=== PATIENT | male | born 1940 | race Caucasian/White ===

== ENCOUNTER 2017-12-27 18:36 | Emergency (ER) | payer OTHER, BC ==
[~2017-12-27] VITALS: Ht 172.7 cm; Wt 79.5 kg
[2017-12-27 19:35] LABS: MCHC 33.3 G/DL (30.0-36.0); PLATELET COUNT 249 K/uL (156-360); RBC DIS.WIDTH-CV 13.6 % (11.8-14.6); RBC DIS.WIDTH-SD 44.7 % (39-53); WHITE BLOOD COUNT 7.7 K/uL (4.1-10.2)
[2017-12-27 19:50] LABS: ALBUMIN 4.3 g/dL (3.2-4.8); CHLORIDE 106 mEq/L (99-109); POTASSIUM 4.1 mEq/L (3.7-5.4); SODIUM 139 mEq/L (136-147)
[2017-12-27 19:52] LABS: GLUCOSE 103 mg/dL (70-99); TOTAL PROTEIN 7.1 g/dL (6.4-8.3)
[2017-12-27 19:54] LABS: TOTAL BILIRUBIN 0.4 mg/dL (0.0-1.0)
[2017-12-27 19:55] LABS: APPEARANCE CLEAR ((CLEAR)); BILIRUBIN NEGATIVE; BLOOD NEGATIVE; COLOR YELLOW ((YELLOW)); GLUCOSE (STRIP) NEGATIVE; KETONES NEGATIVE; LEUKOCYTES NEGATIVE; NITRITE NEGATIVE; PROTEIN (STRIP) NEGATIVE; SPECIFIC GRAVITY 1.013 (1.000-1.030); UCUL ADDED? NO; UROBILINOGEN 0.2 MG/DL (0.2-1.0)
[2017-12-27 19:56] LABS: ALKALINE PHOSPHATASE 83 IU/L (3-129); GFR ESTIMATE (CALCULATED) > 59 mL/min/ (58.99-99999)
[2017-12-27 19:57] LABS: UREA NITROGEN (BUN) 22 mg/dL (9-23)
[2017-12-27 19:58] LABS: AST (GOT) 24 IU/L (2-34)
[2017-12-27 19:59] LABS: ALT (GPT) 21 IU/L (3-49)
[2017-12-27 20:53] LABS: LIPASE 17 U/L (1.0-51.0)
[2017-12-27 22:49] VITALS: BP 172/82
== END 2017-12-27 22:50 | disposition home or self-care (01) ==
LOC: EME 18:36
DX: M54.14 Radiculopathy, thoracic region (principal); M47.894 Other spondylosis, thoracic region; M48.05 Spinal stenosis, thoracolumbar region; M51.35 Other intervertebral disc degeneration, thoracolumbar region; J44.9 Chronic obstructive pulmonary disease, unspecified; G89.29 Other chronic pain; M54.9 Dorsalgia, unspecified; Z79.891 Long term (current) use of opiate analgesic; Z90.79 Acquired absence of other genital organ(s); Z88.1 Allergy status to other antibiotic agents
CPT/HCPCS: 72129; 72132; 74177; 80053; 81003; 83690; 85027; 99281; 99284; J7040